=== PATIENT | female | born 1975 | race Two or more races ===

== ENCOUNTER 2023-01-18 08:53 | Emergency (ER) | payer OTHER ==
[~2023-01-18] VITALS: Ht 157.5 cm; Wt 71.7 kg
[2023-01-18] MEDS ORDERED: HUMIRA(CF)40 MG/0.1 SQ (09:23)
[2023-01-18] MEDS ORDERED: SYNTHROID112 MCG PO (09:23)
[2023-01-18] MEDS ORDERED: TRULICITY0.75 MG/0. SQ (09:23)
[2023-01-18] MEDS ORDERED: METHOTREXA25 MG/1 M5 (09:23)
[2023-01-18] MEDS ORDERED: SYNTHROID125 MCG PO (09:24)
[2023-01-18] MEDS ORDERED: FENOFIBRATE54 MG (09:24)
[2023-01-18] MEDS ORDERED: XIGDUO XR 5 MG1 EAC1 PO (09:24)
[2023-01-18] MEDS ORDERED: ATORVASTATIN CA20 MG PO (09:25)
== END 2023-01-18 13:36 | disposition home or self-care (01) ==
LOC: ER 08:53
DX: U07.1 COVID-19 (principal); E11.9 Type 2 diabetes mellitus without complications; Z79.84 Long term (current) use of oral hypoglycemic drugs; Z91.013 Allergy to seafood